=== PATIENT | female | born 1995 | race Caucasian/White ===

== ENCOUNTER 2016-07-07 15:32 | Emergency (ER) ==
[2016-07-07 15:41] VITALS: BP 106/72; TEMP 98.3; BMI 27.6
--- NOTE | 2016-07-07 16:24 | ED.PDOC ---
General ED Provider: Dr. ARASELI BENÍTEZ Chief Complaint: Sore Throat Stated Complaint: Patientis a 21 year old who comes to the Er with cough, sore throat and congestion that started 3 days ago. Time Seen by Physician: 15:50 Mode of Arrival: Walk-In Information Source: Patient Exam Limitations: No limitations Primary Care Provider: TASHA MCCRARY Nursing and Triage Documentation Reviewed and Agree: Yes EENT Complaint Exam - Throat Complaint/Exam Onset/Duration: 3 days Symptoms Are: Still present Timimg: Constant Initial Severity: Mild Current Severity: Mild Aggravating: Reports: Eating Alleviating: Reports: None Associated Signs and Symptoms: Reports: Dysphagia, Cough Uvula Midline: No Shweta-tonsillar Fluctuence: No Scarlatinaform Rash Present: No Lesions: Absent: Lip, Gums, Tongue, Buccal Mucosa, Pharynx Exanthem: Absent: Lip, Gums, Tongue, Buccal Mucosa, Pharynx Vesicles: Absent: Lip, Gums, Tongue, Buccal Mucosa, Pharynx Stridor Present: No Sinus Tenderness Present: No Tonsillar Hypertrophy Present: No Tonsillar Exudate Present: No Shweta-tonsillar Swelling Present: No Adenopathy Present: No Splenomegaly Present: No Differential Diagnoses: Epiglottitis, Tonsillitis Review of Systems - Review Of Systems Constitutional: Denies: Fever, Loss of appetite Eyes: Reports: No symptoms Ears, Nose, Mouth, Throat: Reports: Throat pain Respiratory: Reports: Cough, Other (conjgestion ) Cardiac: Reports: No symptoms GI: Reports: No symptoms : Reports: No symptoms Musculoskeletal: Reports: No symptoms Skin: Reports: No symptoms Neurological: Reports: No symptoms Endocrine: Reports: No symptoms Hematologic/Lymphatic: Reports: No symptoms All Other Systems: Reviewed and Negative Past Medical History - Past Medical History Endocrine: Reports: None Cardiovascular: Reports: None Respiratory: Reports: None Hematological: Reports: None Gastrointestinal: Reports: None Genitourinary: Reports: None Neuro/Psych: Reports: None Musculoskeletal: Reports: None Cancer: Reports: None Last Menstrual Period: due tomorrow - Surgical History General Surgical History: Reports: None - Family History Family History: Reports: None - Social History Smoking Status: Current some day smoker Hx Substance Use: No Alcohol Screening: None - Immunizations Tetanus Shot up to Date: Yes Physical Exam - Physical Exam Appearance: Ill-appearing, Well-nourished Ill-appearing: Mild Eyes: BENJAMIN, EOMI, Conjunctiva clear ENT: Ears normal, Nose normal, Oropharynx normal Neck: Supple Respiratory: Airway patent, Breath sounds clear, Breath sounds equal, Respirations nonlabored Cardiovascular: RRR, Pulses normal, No rub, No murmur GI/: Soft, Nontender, No masses, Bowel sounds normal, No Organomegaly Musculoskeletal: Normal strength, ROM intact, No edema, No calf tenderness Skin: Warm, Dry, Normal color Neurological: Sensation intact, Motor intact, Reflexes intact, Cranial nerves intact, Alert, Oriented Psychiatric: Affect appropriate, Mood appropriate Critical Care Note - Critical Care Note Total Time (mins): 0 Course - Course Vital Signs: Temp Pulse Resp BP Pulse Ox 07/07/16 15:33 98.3 F 90 16 106/72 97 Departure - Departure Time of Disposition: 16:22 Disposition: HOME SELF-CARE Discharge Problem: Sore throat symptom, Cough, Viral syndrome Instructions: Viral Syndrome (ED), Cold Symptoms (ED), Sore Throat in Children (ED) Condition: Fair Pt referred to PMD for follow-up: Yes Additional Instructions: Quit smoking Take antibiotics as prescribed Follow up with PCP in 3 days Prescriptions: Azithromycin [Zithromax] 250 mg PO DIRECTED #6 tablet Allergies/Adverse Reactions: Allergies amoxicillin [Amoxicillin] Adverse Reaction (Mild, Verified 07/07/16 15:37) Hives Home Medications: Ambulatory Orders Azithromycin [Zithromax] 250 mg PO DIRECTED #6 tablet 07/07/16 Norgestimate-Ethinyl Estradiol [Trinessa Tablet] 1 tab PO DAILY 07/07/16 Disposition Discussed With: Patient, Family
== END 2016-07-07 16:29 | disposition home or self-care (01) ==
LOC: ED 15:32
DX: J02.9 Acute pharyngitis, unspecified (principal); B34.9 Viral infection, unspecified; R05 Cough; F17.210 Nicotine dependence, cigarettes, uncomplicated
CPT/HCPCS: 99282

== ENCOUNTER 2017-05-23 16:47 | Outpatient (CLI) | END 2017-05-23 16:48 | disposition home or self-care (01) | LOC: RHC-LAB 16:47 | PROVIDERS: ATTEND Nurse Practitioner Family | DX: R52 Pain, unspecified (principal) | CPT/HCPCS: 87804 ==